=== PATIENT | male | born 1990 | race Caucasian/White ===

== ENCOUNTER 2020-10-20 19:33 | Emergency (ER) | payer SELFPAY ==
[~2020-10-20] VITALS: Ht 190.5 cm; Wt 129.2 kg
--- NOTE | 2020-10-20 19:48 | ED GU-Male ---
General Stated Complaint: LOWER ABDOMEN,LEFT TESTICLE PAIN Source: patient Exam Limitations: no limitations History of Present Illness Date Seen by Provider: Oct 20, 2020 Time Seen by Provider: 19:39 Initial Comments To ER with left-sided testicle left lower abdomen left flank pain. This is been ongoing for about 2 weeks but tonight it got so bad he had to leave work. No dysuria. No history of kidney stones. He is sexually active. Timing/Duration: getting worse Severity/Quality: moderate Location: right flank Radiation: none Activities at Onset: none Prior Genitourinary Problems: none Associated Symptoms: denies symptoms Allergies and Home Medications Allergies Coded Allergies: No Known Drug Allergies (Unverified , 10/20/20) Home Medications Doxycycline Hyclate 100 Mg Tablet, 100 MG PO BID Prescribed by: JESSICA PANTOJA on 10/20/202056 Patient Home Medication List Home Medication List Reviewed: Yes Review of Systems Review of Systems Constitutional: see HPI; No chills, No fever EENTM: see HPI Respiratory: no symptoms reported Cardiovascular: no symptoms reported Genitourinary: see HPI Musculoskeletal: no symptoms reported Skin: no symptoms reported Psychiatric/Neurological: No Symptoms Reported Endocrine: No Symptoms Reported Physical Exam Vital Signs Vital Signs - First Documented 10/20/20 19:39 Temp 37.1 Pulse 86 Resp 16 B/P (MAP) 187/94 (125) Pulse Ox 99 O2 Delivery Room Air Capillary Refill : Height, Weight, BMI Height: '" Weight: lbs. oz. kg; BMI Method: General Appearance: WD/WN, no apparent distress Neck: non-tender, full range of motion Respiratory: normal breath sounds, no respiratory distress, no accessory muscle use Gastrointestinal: normal bowel sounds, soft, tenderness (Minimal left-sided suprapubic tenderness) Male: testicular tenderness (Left testicle is tender to palpation but normal in lie and size with overlying skin normal appearance. Exam done with Suresh RODRIGUEZ at bedside. ) Neurologic/Psychiatric: alert, normal mood/affect, oriented x 3 Skin: normal color, warm/dry Progress/Results/Core Measures Suspected Sepsis SIRS Temperature: Pulse: Respiratory Rate: Laboratory Tests 10/20/20 20:00: White Blood Count 11.6H Blood Pressure / Mean: Laboratory Tests 10/20/20 20:00: Creatinine 0.97, Platelet Count 261, Total Bilirubin 0.4 Results/Orders Lab Results Laboratory Tests Test 10/20/20 20:00 Range/Units White Blood Count 11.6 H 4.3-11.0 10^3/uL Red Blood Count 5.16 4.30-5.52 10^6/uL Hemoglobin 15.2 13.3-17.7 g/dL Hematocrit 45 40-54 % Mean Corpuscular Volume 87 80-99 fL Mean Corpuscular Hemoglobin 30 25-34 pg Mean Corpuscular Hemoglobin Concent 34 32-36 g/dL Red Cell Distribution Width 12.3 10.0-14.5 % Platelet Count 261 130-400 10^3/uL Mean Platelet Volume 10.5 9.0-12.2 fL Immature Granulocyte % (Auto) 0 % Neutrophils (%) (Auto) 68 42-75 % Lymphocytes (%) (Auto) 25 12-44 % Monocytes (%) (Auto) 5 0-12 % Eosinophils (%) (Auto) 2 0-10 % Basophils (%) (Auto) 0 0-10 % Neutrophils # (Auto) 7.8 1.8-7.8 10^3/uL Lymphocytes # (Auto) 2.9 1.0-4.0 10^3/uL Monocytes # (Auto) 0.6 0.0-1.0 10^3/uL Eosinophils # (Auto) 0.2 0.0-0.3 10^3/uL Basophils # (Auto) 0.1 0.0-0.1 10^3/uL Immature Granulocyte # (Auto) 0.0 0.0-0.1 10^3/uL Sodium Level 140 135-145 MMOL/L Potassium Level 3.4 L 3.6-5.0 MMOL/L Chloride Level 104 98-107 MMOL/L Carbon Dioxide Level 26 21-32 MMOL/L Anion Gap 10 5-14 MMOL/L Blood Urea Nitrogen 11 7-18 MG/DL Creatinine 0.97 0.60-1.30 MG/DL Estimat Glomerular Filtration Rate > 60 BUN/Creatinine Ratio 11 Glucose Level 114 H 70-105 MG/DL Calcium Level 9.1 8.5-10.1 MG/DL Corrected Calcium 8.7 8.5-10.1 MG/DL Total Bilirubin 0.4 0.1-1.0 MG/DL Aspartate Amino Transf (AST/SGOT) 15 5-34 U/L Alanine Aminotransferase (ALT/SGPT) 19 0-55 U/L Alkaline Phosphatase 53 40-136 U/L Total Protein 7.2 6.4-8.2 GM/DL Albumin 4.5 3.2-4.5 GM/DL My Orders Orders - JESSICA PANTOJA APRN Us Scrotum (Testicle) [id number] (10/20/20 19:39) Ct Abd/Pelvis Wo(Kidney Stone) (10/20/20 19:44) Ua Culture If Indicated (10/20/20 19:44) Neis Khoa Dna Urine Test (10/20/20 19:44) Chlamydia Trachomatis Urine (10/20/20 19:44) Cbc With Automated Diff (10/20/20 19:44) Comprehensive Metabolic Panel (10/20/20 19:44) Ed Iv/Invasive Line Start (10/20/20 19:44) Ceftriaxone For Iv Use (Rocephin For I (10/20/20 21:00) Azithromycin Tablet (Zithromax Tablet) (10/20/20 21:00) Medications Given in ED Current Medications Medications Dose Ordered Sig/Deepti Route Start Time Stop Time Status Last Admin Dose Admin Ceftriaxone Sodium 1000 mg/ Sterile Water 10 ml @ 200 mls/hr ONCE ONCE IV 10/20/20 21:00 10/20/20 21:02 DC 10/20/20 21:11 200 MLS/HR Vital Signs/I&O 10/20/20 19:39 Temp 37.1 Pulse 86 Resp 16 B/P (MAP) 187/94 (125) Pulse Ox 99 O2 Delivery Room Air Capillary Refill : Diagnostic Imaging Diagonstic Imaging: CT Comments NAME: ALL TENORIO [facility] REC#: [id number] PT STATUS: REG ER : 1990 PHYSICIAN: JESSICA PANTOJA APRN ADMIT DATE: 10/20/20/ER Draft Date of Exam:10/20/20 CT ABD/PELVIS WO(KIDNEY STONE) PROCEDURE: CT urinary tract, rule out kidney stone. TECHNIQUE: Multiple contiguous axial images were obtained through the abdomen and pelvis without the use of intravenous contrast. Auto Exposure Controls were utilized during the CT exam to meet ALARA standards for radiation dose reduction. INDICATION: Low abdominal and scrotal pain. Unenhanced images of liver, gallbladder, pancreas, adrenal glands and spleen are unremarkable. There is distention of stomach with fluid. Unenhanced images of the kidneys are unremarkable. There is no evidence of renal calculus or hydronephrosis. There is no evidence of bladder stone. The appendix has a normal appearance. There is no free fluid within the abdomen or pelvis and no pathologically enlarged adenopathy is identified. There appears to be bilateral L5 spondylolysis with minimal spondylolisthesis. IMPRESSION: No acute abnormality is identified. Dictated on workstation # [id number] Dict: 10/20/202007 Trans: 10/20/202011 PJE [id number] Interpreted by: ASHLEY CAMARA MD Electronically signed by: NAME: ALL TENORIO [facility] REC#: [id number] PT STATUS: REG ER : 1990 PHYSICIAN: JESSICA PANTOJA APRN ADMIT DATE: 10/20/20/ER Draft Date of Exam:10/20/20 US SCROTUM (Testicle) [id number] PROCEDURE: US scrotum. TECHNIQUE: Multiple real-time grayscale images were obtained over the scrotum in various projections, bilaterally. INDICATION: Scrotal pain. Testes demonstrate homogeneous echogenicity and are symmetric, bilaterally. There is normal testicular blood flow without evidence of testicular mass. No extratesticular scrotal mass identified. Small amount of fluid on the right may represent minimal hydrocele. No varicocele or hernia is identified. IMPRESSION: Unremarkable scrotal ultrasound apart from possible minimal right hydrocele. Dictated on workstation # [id number] Dict: 10/20/202055 Trans: 10/20/202057 PJE [id number] Interpreted by: ASHLEY CAMARA MD Electronically signed by: Departure Communication (Admissions) [id number]-patient was asked multiple times for urine sample but each time states that he will be unable to produce a urine sample for us. Impression Primary Impression: Pain in testicle Disposition: HOME, SELF-CARE Condition: Stable Departure-Patient Inst. Decision time for Depature: 20:55 Referrals: NO,LOCAL PHYSICIAN (PCP) Primary Care Physician GEOFFREY LEAHY MD Patient Instructions: Epididymitis (DC) Add. Discharge Instructions: Your CAT scan does not show any stones and your ultrasound does not show any sign of poor blood flow to the testicle. This could represent some infection in the left side of the testicle though your lab tests look good. Take the antibiotics as directed. Follow-up with Dr. Leahy from urology next week if the pain sticks around. Scripts Doxycycline Hyclate (Doxycycline Hyclate) 100 Mg Tablet 100 MG PO BID, #14 TAB 0 Refills Prov: JESSICA PANTOJA APRN 10/20/20 Work/School Note: Work Release Form Date Seen in the Emergency Department: Oct 20, 2020 Return to Work: Oct 21, 2020 JESSICA PANTOJA APRN Oct 20, 2020 19:48
[2020-10-20 20:07] LABS: BASOPHILS # (AUTO) 0.1 10^3/uL (0.0-0.1); BASOPHILS % (AUTO) 0 % (0-10); EOSINOPHILS # (AUTO) 0.2 10^3/uL (0.0-0.3); EOSINOPHILS % (AUTO) 2 % (0-10); HEMATOCRIT 45 % (40-54); HEMOGLOBIN 15.2 g/dL (13.3-17.7); LYMPHOCYTES # (AUTO) 2.9 10^3/uL (1.0-4.0); LYMPHOCYTES % (AUTO) 25 % (12-44); MEAN CORPUSCULAR HEMOGLOBIN 30 pg (25-34); MEAN CORPUSCULAR HGB CONC 34 g/dL (32-36); MEAN CORPUSCULAR VOLUME 87 fL (80-99); MEAN PLATELET VOLUME 10.5 fL (9.0-12.2); MONOCYTES # (AUTO) 0.6 10^3/uL (0.0-1.0); MONOCYTES % (AUTO) 5 % (0-12); NEUTROPHILS # (AUTO) 7.8 10^3/uL (1.8-7.8); NEUTROPHILS % (AUTO) 68 % (42-75); PLATELET COUNT 261 10^3/uL (130-400); WHITE BLOOD COUNT 11.6 10^3/uL (4.3-11.0)
--- NOTE | 2020-10-20 20:12 | Diagnostic Imaging Report ---
PROCEDURE: CT urinary tract, rule out kidney stone. TECHNIQUE: Multiple contiguous axial images were obtained through the abdomen and pelvis without the use of intravenous contrast. Auto Exposure Controls were utilized during the CT exam to meet ALARA standards for radiation dose reduction. INDICATION: Low abdominal and scrotal pain. Unenhanced images of liver, gallbladder, pancreas, adrenal glands and spleen are unremarkable. There is distention of stomach with fluid. Unenhanced images of the kidneys are unremarkable. There is no evidence of renal calculus or hydronephrosis. There is no evidence of bladder stone. The appendix has a normal appearance. There is no free fluid within the abdomen or pelvis and no pathologically enlarged adenopathy is identified. There appears to be bilateral L5 spondylolysis with minimal spondylolisthesis. IMPRESSION: No acute abnormality is identified. Dictated by: Dictated on workstation # [id number]
[2020-10-20 20:17] LABS: ALBUMIN 4.5 GM/DL (3.2-4.5); CHLORIDE 104 MMOL/L (98-107); POTASSIUM 3.4 MMOL/L (3.6-5.0); SODIUM 140 MMOL/L (135-145)
[2020-10-20 20:18] LABS: CALCIUM 9.1 MG/DL (8.5-10.1)
[2020-10-20 20:19] LABS: GLUCOSE 114 MG/DL (70-105); TOTAL PROTEIN 7.2 GM/DL (6.4-8.2)
[2020-10-20 20:20] LABS: CARBON DIOXIDE 26 MMOL/L (21-32)
[2020-10-20 20:21] LABS: BILIRUBIN,TOTAL 0.4 MG/DL (0.1-1.0)
[2020-10-20 20:23] LABS: ALKALINE PHOSPHATASE 53 U/L (40-136); CREATININE SERUM 0.97 MG/DL (0.60-1.30); GFR ESTIMATED > 60
[2020-10-20 20:24] LABS: BUN/CREATININE RATIO 11
[2020-10-20 20:26] LABS: ALANINE AMINOTRANSFERASE 19 U/L (0-55)
[2020-10-20] MEDS ORDERED: DOXY100T2 PO (20:57)
--- NOTE | 2020-10-20 20:58 | Diagnostic Imaging Report ---
PROCEDURE: US scrotum. TECHNIQUE: Multiple real-time grayscale images were obtained over the scrotum in various projections, bilaterally. INDICATION: Scrotal pain. Testes demonstrate homogeneous echogenicity and are symmetric, bilaterally. There is normal testicular blood flow without evidence of testicular mass. No extratesticular scrotal mass identified. Small amount of fluid on the right may represent minimal hydrocele. No varicocele or hernia is identified. IMPRESSION: Unremarkable scrotal ultrasound apart from possible minimal right hydrocele. Dictated by: Dictated on workstation # [id number]
[2020-10-20] MEDS ORDERED: cefTRIAXone FOR IV USE 1,000 MG in WATER (STERILE) FOR INJECTION 10 ML IV ONE (21:00)
[2020-10-20] MEDS ORDERED: AZITHROMYCIN 250 MG TAB (ZITHROMAX) PO SCH (21:00)
[2020-10-20 21:23] VITALS: BP 132/97
== END 2020-10-20 21:23 | disposition home or self-care (01) ==
LOC: EDUNIT# 19:33 → ER 19:39
DX: N50.812 Left testicular pain (principal); I10 Essential (primary) hypertension
CPT/HCPCS: 36415; 74176; 76870; 80053; 85025